=== PATIENT | female | born 1995 | race Asian ===

== ENCOUNTER 2024-04-20 06:21 | Emergency (ER) | payer OTHER, SELFPAY ==
[2024-04-20 06:22] VITALS: BP 114/62; BMI 31.7
--- NOTE | 2024-04-20 06:24 | ED.GENMED ---
History of Present Illness
General
Chief Complaint: Problems
Source: patient, civil engineering designer and ambulance crew
Exam Limitations: none
Time Seen by Provider: 04/20/24 06:22
Nursing documentation reviewed up to this point in time: agreed with
History of Present Illness
History of Present Illness:
28-year-old female at 7 weeks presents emergency department due to vaginal bleeding, passing clots. This began earlier today. She follows with Dr. Charles.
Past History
Social History
Tobacco: Non-smoker
Alcohol: None
Drug: None
Personal:
Living: with family
Review of Systems
Review of Systems
Allergies reviewed?: Yes
All Other Systems: Not applicable
Constitutional: Reports no symptoms
EENT: Reports no symptoms
Respiratory: Reports no symptoms
Cardiac: Reports no symptoms
ABD/GI: Reports no symptoms
: Reports bleeding
Musculoskeletal: Reports no symptoms
Skin: Reports no symptoms
Neurological: Reports no symptoms
Endocrine: Reports no symptoms
Hematologic/Lymphatic: Reports no symptoms
Phy Exam
Physical Exam
Physical Exam:
Physical Exam
General: no apparent distress, not acutely ill
Neck: supple. no meningeal signs. normal posterior pharynx
Heart: equal radial pulses.
HEENT: Pupils equal round reactive to light, EOMI
Lungs: no acute respiratory distress.
Abdomen: Soft, nondistended, mild lower abdominal/pelvic tenderness, no rebound encouraged
Neuro: alert and oriented. no focal neurological deficits
Skin: no rash
Psychiatric: well kept. interactive and cooperative
Extremities: no edema. good distal pulses
Genitourinary Exam Female
Exam Female: vaginal bleeding
Vaginal Exam: blood
Vaginal Bleeding: minimal
Visual exam of cervix: os closed
Uterus: nontender
Course
Orders/Labs/Results
Orders:
Orders
04/20/24 06:22
IV Insert/Care/Rem.- Treatment PRN
04/20/24 06:23
US 1st Trimester Urgent
Comment: for placement services
Reason For Exam: vaginal bleeding 7wks preg
04/20/24 06:34
Beta HCG Quantitative Urgent
Is this a screen?: No
Complete Blood Count/With Diff Urgent
Comprehensive Metabolic Panel Urgent
Abnormal Lab Results
04/20/24
06:34
Hgb 11.2 L g/dL
(12.0-16.0)
Hct 34.8 L %
(37.0-47.0)
MCV 80.2 L fL
(81.0-99.0)
MCH 25.8 L pg
(27.0-31.0)
MCHC 32.2 L g/dL
(33.0-37.0)
BUN 18 H mg/dl
(7-17)
Creatinine 0.5 L mg/dL
(0.6-1.0)
Total Protein 8.3 H g/dl
(6.3-8.2)
04/20/24 06:34
04/20/24 06:34
Vital Signs
Initial and Last Documented VS:
Initial Vital Signs
Temp Pulse Resp BP Pulse Ox
98.6 F 91 16 114/62 100
04/20/24 06:22 04/20/24 06:22 04/20/24 06:22 04/20/24 06:22 04/20/24 06:22
Last Documented Vital Signs
Temp Pulse Resp BP Pulse Ox
98.5 F 72 16 126/75 98
04/20/24 08:07 04/20/24 08:07 04/20/24 08:07 04/20/24 08:07 04/20/24 08:07
Information
Weeks gestation: Weeks: (6)
Location: Location: (intrauterine)
MDM/Problems Addressed
Differential Diagnosis Includes:
miscarriage, ectopic
MDM/Problems Addressed:
28 yo female with threatened miscarriage. AB pos, IUP seen on US. VSS. F/u with Dr Duenas
*Radiology
Radiology exam reviewed: radiology read reviewed (US IUP at 6w3d)
*Pulse Oximetry
Patient hypoxic: no
*EKG
Interpreted by ED Provider?: NA
*Knowledge Manager Interpretation
Rate: Knowledge Manager- N/A
*Critical Care Note
Total Time (30-74mins, 75-104mins- exclusive of procedures): Not Applicable
Data Reviewed
Review of Other/Old Records Reveals: Labs (AB pos blood type)
Source: records
Patient Management
Social determinants of health affecting care: Living situation
Escalation/DeEscalation of care consider admission/obs:
admit not indicated
ED Attending Note
-
Portions of this chart may have been created with voice recognition software.� Occasional wrong word or��sound alike� substitutions may have occurred due to the inherent limitations of voice recognition software.
Discharge Plan
Departure
Patient Disposition: Home (Routine Discharge)
Date of Disposition: 04/20/24
Time of Disposition: 08:03
Patient with high blood pressure during this ER visit?: No
Condition: Good
Discharge Problem:
Miscarriage, threatened, early
Instructions: Threatened Miscarriage (DC)
Prescriptions:
No Action
vit-iron fum-folic ac [ Tablet] 28 mg iron- 800 mcg Tablet
1 tab PO DAILY
acetaminophen 325 mg Tablet
650 mg PO Q4HPRN PRN (Reason: mild pain) Qty: 0 0RF
ibuprofen 600 mg Tablet
600 mg PO Q6HPRN PRN (Reason: moderate pain/cramps) Qty: 0 0RF
Referrals:
Jessica Duenas MD [Active] - Call in 1-3 days for appt
Kenrick Ortiz PA [Family Provider] -
Interventions
Interventions:
*Risk Screen - Suicide Last Done: 04/20/24 06:22
*General Assessment Last Done: 04/20/24 06:22
*Neglect/Abuse Screening Last Done: 04/20/24 06:22
ED- Fall Risk Assessment Last Done: 04/20/24 08:07
*ED COVID-19 Vaccine History Last Done: 04/20/24 08:07
*Nursing Disposition Last Done: 04/20/24 08:07
ED-Female Genitourinary Assessment Last Done: 04/20/24 06:45
Discharge Date and Time
Discharge Date/Time: 04/20/24 08:36
Print Language: SLOVENIAN
[2024-04-20 06:46] LABS: % Basophils 0.6 % (0-2); % Eosinophils 2.1 % (0-6); % Immature Granulocytes 0.4 % (0-0.5); % Lymphocytes 37.9 % (20.5-51.1); Absolute Eosinophils 0.1 10^3/uL (0-0.7); Absolute Monocytes 0.5 10^3/uL (0.1-0.6); Absolute Neutrophils 2.7 10^3/uL (1.4-6.5); Hematocrit 34.8 % (37.0-47.0); Hemoglobin 11.2 g/dL (12.0-16.0); Mean Corp Hgb Conc. 32.2 g/dL (33.0-37.0); Mean Corpuscular Hgb 25.8 pg (27.0-31.0); Mean Corpuscular Volume 80.2 fL (81.0-99.0); Mean Platelet Volume 9.5 fL (7.4-10.4); Nucleated Red Blood Cells % 0 %; Platelet Count 315 10^3/uL (130-400); Red Blood Cell Count 4.34 10^6/uL (4.20-5.40); Red Cell Dist. Width 13.4 % (11.5-14.5); White Blood Cell Count 5.3 10^3/uL (4.8-10.8)
[2024-04-20 07:05] LABS: ALT (SGPT) 12 U/L (0-35); AST (SGOT) 22 U/L (14-36); Albumin 4.6 g/dl (3.5-5.0); Alkaline Phosphatase 45 U/L (38-126); Blood Urea Nitrogen 18 mg/dl (7-17); Calcium 9.7 mg/dl (8.4-10.2); Carbon Dioxide 23 mmol/L (22-30); Chloride 106 mmol/L (98-107); Estimated Creatinine Clearance > 125 ml/min; Glucose 97 mg/dl (70-99); Potassium 4.4 mmol/L (3.5-5.1); Sodium 138 mmol/L (135-145); Total Bilirubin 0.4 mg/dl (0.2-1.3); Total Protein 8.3 g/dl (6.3-8.2); eGFR > 60.00
[2024-04-20 07:26] VITALS: BP 100/53
[2024-04-20 08:00] VITALS: BP 106/59
[2024-04-20 08:07] VITALS: BP 126/75
== END 2024-04-20 08:36 | disposition home or self-care (01) ==
LOC: EMR 06:21
PROVIDERS: EMERGENCY PHYSICIAN Emergency Medicine; FAMILY PHYSICIAN Physician Assistant Medical
DX: O20.0 Threatened abortion (principal); Z3A.01 Less than 8 weeks gestation of pregnancy
CPT/HCPCS: 99284; 76801; 80053; 84702; 85025